=== PATIENT | male | born 1995 | race Caucasian/White ===

== ENCOUNTER 2024-02-03 13:09 | Emergency (ER) | payer MEDICAID ==
[~2024-02-03] VITALS: Ht 172.7 cm; Wt 75.0 kg
[2024-02-03 13:10] VITALS: O2SAT 98
[2024-02-03] MEDS: LEVETIRACETAM 500MG PREMIX 100 ML IV ONE (14:41)
[2024-02-03 14:46] LABS: BASOPHILS % 0.3 % (0.0-2.0); DIFFERENTIAL COMMENT 0; EOSINOPHILS % 0.9 % (0.0-5.0); HEMATOCRIT. 38.7 % (42.0-52.0); LYMPHOCYTES % 22.6 % (20.0-50.0); MEAN CORPUSCULAR HEMOGLOBIN 24.2 pg (28.0-32.0); MEAN CORPUSCULAR HGB CONC 31.1 g/dL (31.0-37.0); MEAN CORPUSCULAR VOLUME 77.9 fL (80.0-94.0); MEAN PLATELET VOLUME 6.3 fl (7.4-10.4); MONOCYTES % 6.5 % (2.0-8.0); NEUTROPHILS % 69.7 % (40.0-76.0); PLATELET 281 x1000/uL (130-400); RED BLOOD CELL COUNT 4.97 mill/uL (4.7-6.1); RED CELL DISTRIBUTION WIDTH 17.9 % (11.6-14.6); WHITE BLOOD COUNT 4.6 x1000/uL (4.5-11.0)
[2024-02-03 14:53] LABS: CHLORIDE 105 mEq/L (98-107); POTASSIUM 3.9 mEq/L (3.5-5.1); SODIUM 138 mEq/L (136-145)
[2024-02-03 14:54] LABS: CARBON DIOXIDE 30 mEq/L (21-32)
[2024-02-03 14:55] LABS: CALCIUM 9.3 mg/dL (8.7-10.4)
[2024-02-03 14:59] LABS: CREATININE 0.8 mg/dL (0.6-1.3); GLUCOSE 81 mg/dL (70-105); UREA NITROGEN BLOOD 14 mg/dL (9-23)
[2024-02-03 15:01] LABS: ALANINE AMINOTRANSFERASE 13 IU/L (10-49); ASPARTATE AMINOTRANSFERASE 20 IU/L (<34)
[2024-02-03 15:02] LABS: BILIRUBIN TOTAL 0.2 mg/dL (0.1-1.0); PROTEIN TOTAL 6.5 g/dL (6.0-8.3)
[2024-02-03 16:00] VITALS: TEMP 36.78072
[2024-02-03 21:30] VITALS: BP 118/68; PULSE 82; RESP 16; O2SAT 99
== END 2024-02-03 21:40 | disposition home or self-care (01) ==
LOC: ER 14:48
DX: G40.909 Epilepsy, unspecified, not intractable, without status epilepticus (principal); Z88.5 Allergy status to narcotic agent; Z88.8 Allergy status to other drugs, medicaments and biological substances; I10 Essential (primary) hypertension; J45.909 Unspecified asthma, uncomplicated
CPT/HCPCS: 99284; 96365; 96366; 80053; 85025; 36415; J1953